=== PATIENT | female | born 1945 | race American Indian/Alaskan Native ===

== ENCOUNTER 2020-12-22 13:06 | Emergency (ER) | payer OTHER ==
[~2020-12-22] VITALS: Ht 170.2 cm; Wt 65.8 kg
[~2020-12-22 13:06] MED LIST: IBUPROFEN400 MG PO; NORCO 5-325 TA1 EACH PO; PREDNISONE10 MG PO; TRIAMCINOLONE A15 GM TOP
[2020-12-22] MEDS ORDERED: ONDANSETRON ODT8 MG PO (13:55)
== END 2020-12-22 14:07 | disposition home or self-care (01) ==
LOC: ED 13:06
DX: U07.1 COVID-19 (principal); Z88.0 Allergy status to penicillin; Z88.1 Allergy status to other antibiotic agents
CPT/HCPCS: 99284